=== PATIENT | female | born 1990 | race African-American/Black ===

== ENCOUNTER 2018-10-19 12:23 | Emergency (ER) | payer SELFPAY ==
[~2018-10-19] VITALS: Ht 160 cm; Wt 86.2 kg
--- NOTE | 2018-10-19 12:59 | NUR ---
ED Nurse Note: Pt walked in to ED due to feeling anxious for couple weeks. Pt states that she has had some life stressors.
[2018-10-19 13:00] VITALS: BP 120/75
[2018-10-19] MEDS ORDERED: LORazepam 1mg tab ORAL ONE (13:00)
[2018-10-19 13:16] LABS: APPEARANCE,URINE SLIGHTLY CLOUDY; BILIRUBIN, URINE NEGATIVE (NEGATIVE); COLOR,URINE PALE YELLOW; GLUCOSE, URINE (UA) NEGATIVE (NEGATIVE); KETONES,URINE NEGATIVE (NEGATIVE); LEUKOCYTE ESTERASE ,URINE 3+ (NEGATIVE); NITRITE,URINE NEGATIVE (NEGATIVE); PH,URINE 5 (4.5-8.0); PROTEIN,URINE 1+ (NEGATIVE); UROBILINOGEN,URINE NORMAL MG/DL (0.0-1.0)
--- NOTE | 2018-10-19 13:45 | Emergency Room Report ---
History of Present Illness General Chief Complaint: Behavioral Complaint Source: Patient Present Illness HPI 28-year-old female presents to the emergency department complaining of increased symptoms of anxiousness over the course of the last few weeks. Patient reports that she frequently is noticing that she gets some restless legs. Patient reports having a panic attack initial onset of her symptoms and she states that when she is noticing increase in anxiety her largest concern is a recurrent panic attack. Patient reports having some palpitations on occasion she denies fevers, chills, nausea, vomiting, significant changes in weight, thyroid history, illicit drug use or cardiac history. Patient reports large increase in stress associated with her daily living. Patient denies suicidal ideations, on the side ideations, delusions, hallucinations, manic episodes, previous psychiatric hospitalizations or previous suicide attempts. Pt. cannot recall name of her psychiatric medication. states she started it about a month ago, denies rashes. Allergies: Coded Allergies: No Known Allergies (Unverified , 10/19/18) Patient History Past Medical History: see triage record Past Surgical History: none Pertinent Family History: none Last Menstrual Period: 10/12/18 Reviewed Nursing Documentation: PMH: Agreed; PSxH: Agreed Nursing Documentation-PMH Past Medical History: No Stated History Review of Systems All Other Systems: negative except mentioned in HPI Physical Exam Vital Signs Date Time Temp Pulse Resp B/P (MAP) Pulse Ox O2 Delivery O2 Flow Rate FiO2 10/19/18 12:32 98.1 99 18 124/78 97 Room Air 10/19/18 13:00 98 Sp02 EP Interpretation: reviewed, normal General Appearance: no apparent distress, alert, GCS 15, non-toxic Head: normocephalic, atraumatic Eyes: bilateral eye normal inspection, bilateral eye PERRL ENT: hearing grossly normal, normal voice Neck: full range of motion Respiratory: lungs clear, normal breath sounds, speaking full sentences Cardiovascular #1: regular rate, rhythm Musculoskeletal: back normal, gait/station normal, normal range of motion, non- tender Neurologic: alert, oriented x3, responsive, motor strength/tone normal, sensory intact, speech normal, grossly normal Psychiatric: normal inspection, judgement/insight normal, memory normal, mood/ affect normal - not significantly anxious affect, pt. is engaged in conversation,and making appropriate eye contact, not tearful., no suicidal/ homicidal ideation, no delusions Skin: normal color, no rash, warm/dry, well hydrated, other - no evidence to suggest hx of self harm. Medical Decision Making PA Attestation Dr. Collins is my supervising Physician whom patient management has been discussed with. Diagnostic Impression: Primary Impression: Anxious reaction ER Course 28-year-old female presents to the emergency department complaining of increased symptoms of anxiousness over the course of the last few weeks. Patient reports that she frequently is noticing that she gets some restless legs. Patient reports having a panic attack initial onset of her symptoms and she states that when she is noticing increase in anxiety her largest concern is a recurrent panic attack. Patient reports having some palpitations on occasion she denies fevers, chills, nausea, vomiting, significant changes in weight, thyroid history, illicit drug use or cardiac history. Patient reports large increase in stress associated with her daily living. Patient denies suicidal ideations, on the side ideations, delusions, hallucinations, manic episodes, previous psychiatric hospitalizations or previous suicide attempts. Pt. cannot recall name of her psychiatric medication. states she started it about a month ago, denies rashes. Ddx considered but are not limited to anxiety, MA, PE, asthma, thyroid storm, hyperthyroid, EPS Vital signs: are WNL, pt. is afebrile H&PE are most consistent with RLS, possible anxious reaction. ORDERS: -EKG according to Dr. Nagel showed somewhat flattened T waves which prompted ordering of blood work. CBC, CMP were for the most part unremarkable no evidence of electrolyte imbalance. The UA is most consistent with contamination Urine hCG is negative -UDS: Negative ED INTERVENTIONS: - Ativan PO 1 mg -Benadryl PO ( in case sx's are drug SE from psychiatric medications) Patient continues to be comfortable in no acute distress during ED visit, given normal laboratory results and normal ED workup this patient is stable for close outpatient follow-up at psychiatric clinics in the area. DISCHARGE: At this time pt. is stable for d/c to home. Will provide printed patient care instructions, and any necessary prescriptions. Care plan and follow up instructions have been discussed with the patient prior to discharge. Labs Test 10/19/18 13:00 10/19/18 14:10 Urine Color Pale yellow Urine Appearance Slightly cloudy Urine pH 5 (4.5-8.0) Urine Specific [place] 1.015 (1.005-1.035) Urine Protein 1+ (NEGATIVE) Urine Glucose (UA) Negative (NEGATIVE) Urine Ketones Negative (NEGATIVE) Urine Blood 1+ (NEGATIVE) Urine Nitrite Negative (NEGATIVE) Urine Bilirubin Negative (NEGATIVE) Urine Urobilinogen Normal MG/DL (0.0-1.0) Urine Leukocyte Esterase 3+ (NEGATIVE) Urine RBC 0-2 /HPF (0 - 2) Urine WBC 10-15 /HPF (0 - 2) Urine Squamous Epithelial Cells Moderate /LPF (NONE/OCC) Urine Bacteria Few /HPF (NONE) Urine HCG, Qualitative Negative (NEGATIVE) Urine Opiates Screen Negative (NEGATIVE) Urine Barbiturates Screen Negative (NEGATIVE) Phencyclidine (PCP) Screen Negative (NEGATIVE) Urine Amphetamines Screen Negative (NEGATIVE) Urine Benzodiazepines Screen Negative (NEGATIVE) Urine Cocaine Screen Negative (NEGATIVE) Urine Marijuana (THC) Screen Negative (NEGATIVE) White Blood Count 5.3 K/UL (4.8-10.8) Red Blood Count 4.03 M/UL (4.20-5.40) Hemoglobin 10.1 G/DL (12.0-16.0) Hematocrit 32.9 % (37.0-47.0) Mean Corpuscular Volume 82 FL (80-99) Mean Corpuscular Hemoglobin 25.1 PG (27.0-31.0) Mean Corpuscular Hemoglobin Concent 30.8 G/DL (32.0-36.0) Red Cell Distribution Width 15.6 % (11.6-14.8) Platelet Count 329 K/UL (150-450) Mean Platelet Volume 6.3 FL (6.5-10.1) Neutrophils (%) (Auto) 55.4 % (45.0-75.0) Lymphocytes (%) (Auto) 37.9 % (20.0-45.0) Monocytes (%) (Auto) 4.7 % (1.0-10.0) Eosinophils (%) (Auto) 0.8 % (0.0-3.0) Basophils (%) (Auto) 1.2 % (0.0-2.0) Sodium Level 140 MMOL/L (136-145) Potassium Level 3.6 MMOL/L (3.5-5.1) Chloride Level 104 MMOL/L (98-107) Carbon Dioxide Level 24 MMOL/L (21-32) Anion Gap 12 mmol/L (5-15) Blood Urea Nitrogen 9 mg/dL (7-18) Creatinine 0.8 MG/DL (0.55-1.30) Estimat Glomerular Filtration Rate > 60 mL/min (>60) Glucose Level 105 MG/DL (74-106) Calcium Level 8.2 MG/DL (8.5-10.1) EKG Diagnostic Results EP Interpretation: Dr. Nagel Rate: tachycardiac - 103 Rhythm: NSR ST Segments: no acute changes Other Impression flattened t-waves. ASA given to the pt in ED: No PA Scribe Text This Interpretation was scribed by BAKARI Crook. Last Vital Signs Date Time Temp Pulse Resp B/P (MAP) Pulse Ox O2 Delivery O2 Flow Rate FiO2 10/19/18 13:00 98.1 87 18 120/75 98 Room Air 10/19/18 13:00 98 Disposition: HOME, SELF-CARE Condition: Stable Scripts Diphenhydramine Hcl* (BENADRYL*) 25 Mg Capsule 25 MG ORAL Q6H PRN for For Anxiety, #20 CAP Prov: Nathalie Crook 10/19/18 Patient Instructions: Generalized Anxiety Disorder Additional Instructions: Take medications as directed. Follow up with a Mental Health Specialist/ Psychiatrist in 3 days, even if your symptoms have resolved. --Please review [facility] resource information provided Return sooner to ED if new symptoms occur, or current symptoms become worse. - Please note that this Emergency Department Report was dictated using [employer]ument and electrical technician technology software, occasionally this can lead to erroneous entry secondary to interpretation by the dictation equipment. Nathalie Crook Oct 19, 2018 13:45
[2018-10-19 14:31] LABS: BASOPHILS % (AUTO) 1.2 % (0.0-2.0); EOSINOPHILS % (AUTO) 0.8 % (0.0-3.0); HEMATOCRIT 32.9 % (37.0-47.0); HEMOGLOBIN 10.1 G/DL (12.0-16.0); LYMPHOCYTES % (AUTO) 37.9 % (20.0-45.0); MEAN CORPUSCULAR VOLUME 82 FL (80-99); MONOCYTES % (AUTO) 4.7 % (1.0-10.0); NEUTROPHILS % (AUTO) 55.4 % (45.0-75.0); PLATELET COUNT 329 K/UL (150-450); RED BLOOD COUNT 4.03 M/UL (4.20-5.40); RED CELL DISTRIBUTION WIDTH 15.6 % (11.6-14.8); WHITE BLOOD COUNT 5.3 K/UL (4.8-10.8)
[2018-10-19 14:59] LABS: ANION GAP 12 mmol/L (5-15); BLOOD UREA NITROGEN 9 mg/dL (7-18); CALCIUM 8.2 MG/DL (8.5-10.1); CARBON DIOXIDE 24 MMOL/L (21-32); CHLORIDE 104 MMOL/L (98-107); CREATININE 0.8 MG/DL (0.55-1.30); POTASSIUM 3.6 MMOL/L (3.5-5.1); SODIUM 140 MMOL/L (136-145)
[2018-10-19] MEDS ORDERED: BENADRYL25 MG ORAL (15:58)
[2018-10-19 16:11] VITALS: BP 122/70
--- NOTE | 2018-10-19 16:12 | NUR ---
ER DISCHARGE NOTE: Patient is cleared to be discharged per ERMD, pt is aox4, on room air, with stable vital signs. pt was given dc and prescription instructions, pt was able to verbalize understanding, pt id band removed without complications. pt is able to ambulate with steady gait. pt took all belongings.
== END 2018-10-19 16:12 | disposition home or self-care (01) ==
LOC: EMR 13:30
DX: F41.1 Generalized anxiety disorder (principal)
CPT/HCPCS: 36415; 80048; 80307; 81003; 81025; 85025; 87086; 93005; 99283